=== PATIENT | female | born 1985 | race Caucasian/White ===

== ENCOUNTER 2020-02-06 10:10 | Day surgery (SDC) | payer BC, SELFPAY ==
[2020-01-24 07:55] VITALS: BMI 43.4
[2020-02-06 10:31] VITALS: BP 128/85; PULSE 105; RESP 16; TEMP 36.6; O2SAT 100; BMI 39.4
[2020-02-06 10:36] LABS: Internal QC Validated? YES +Cl - CLEAR BKGD; Pregnancy, Urine Negative Negative
[2020-02-06] MEDS: Lactated Ringers 1,000 ML 100 ML IV (10:49)
--- NOTE | 2020-02-06 11:30 | COLBX_PTH ---
PATIENT: JEAN PIERRE LAN LOC: EN U#:[id number] AGE/SX: 34/F ROOM: RE02/06/[address]: Dr. Main King MD : 1985 BED: DIS: 02/06/2020 SPEC #: [id number] RECD: 02/06/20 12:07 STATUS: SAMANTHA PAM #: [id number] KYLIE: 02/06/20 11:[address]: Main King DEPT: SURGICAL PATHOLOGY RECD BY: Patrick Castaneda ENTERED: 02/06/20 12:35 SP TYPE: COLON BX OTHR DR: Dr. John Ames DO Tissues: Sigmoid colon biopsy Procedures: Surgery Specimen Level IV HEADER OPERATION: Colonoscopy (MAC) PRE-OP DIAGNOSIS: Family history of colon cancer TISSUE SUBMITTED: Sigmoid colon polyp biopsy MICROSCOPIC DIAGNOSIS Sigmoid colon polyp, biopsy: Tubular adenoma. SJ:makayla 02/07/20 MICROSCOPIC DESCRIPTION Slides are reviewed. GROSS DESCRIPTION Received in fixative is one container labeled with the patient's name and designated sigmoid colon polyp biopsy. The specimen consists of one irregular fragment of light farfan soft tissue that measures 0.5 x 0.4 x 0.1 cm. The specimen is totally submitted in one cassette. / SJ:makayla 02/06/20 TC:1 CPT: 92485
--- NOTE | 2020-02-06 11:31 | HP.PCM_ITS ---
History and Physical Date of Admission: 02/06/20 [facility] [address] [place], [place] [address] OFFICE VISIT Date of Service: 01/24/20 MR#: [id number] Acct: [id number] Name: JEAN PIERRE LAN Rep #: [id number] : 1985 Provider: Main rogers MD Age/Sex: 34/F Location: [facility] Status: Signed Intake Vital Signs 01/24/20 BMI 43.4 01/24/20 Height 5 ft 5 in 01/24/20 Weight: 235 lb 01/24/20 BMI 39.1 01/24/20 BP 133/86 H 01/24/20 Blood Pressure Location Rt brachial 01/24/20 Position Sitting 01/24/20 Respiration 18 01/24/20 Pulse 105 H 01/24/20 Pulse Source Monitor 01/24/20 Temp 98.3 F 01/24/20 Temp Source Oral 01/24/20 Pulse Oximetry (%) 99 01/24/20 Oxygen Delivery Method room air Intake Visit Reasons: Self Referral/Cscope Consult/Family hx of Colon CA Chief Complaint: c-scope consult Logging Worker Required: No Accompanied by: Father Is patient in pain?: No Allergies No Known Allergies Allergy (Verified 01/24/20 07:52) Medications bupropion HCl 300 mg 24 hr tablet, extended release 300 mg PO QAM 01/24/20 [History Confirmed 01/24/20] PFSH Medical History Anxiety (Acute) Family history of colon cancer (Acute) Surgical History history suction dilatation and curretage (Acute) Family History Grandfather Colon cancer Mother Cancer mucosal melanoma Thyroid disorder Father Hypertension Social History (Updated 01/24/20 @ 07:[address] Main King MD) Smoking Status: Former smoker alcohol intake: never substance use type: does not use HPI HPI HPI: JEAN PIERRE LAN, is a 34 F who presents to the office today for HPI HPI HPI: JEAN PIERRE LAN, is a 34 F who presents to the office today for Evaluation for colonoscopy. Several years ago I diagnosed her mother with melanoma of the colon. She has subsequently passed. She also has a grandfather who had colon cancer. She has had no rectal bleeding she has had no change in her bowel habits. She is not complaining of any abdominal pain. ROS General General: No weight change, appetite, fatigue, colon cancer, breast cancer or weakness HEENT HEENT: No difficulty swallowing, eye injury, eye surgery, swollen glands or hoarseness Endo Endocrine: No thyroid disease, diabetes mellitus, thyroid cancer, Hair loss, heat intolerance or cold intolerance Skin Skin: No rash or changing moles Breast Breast: No left breast lump, right breast lump, nipple discharge, breast pain, abnormal mammogram, abnormal US or breast enlargement Musc Musculoskeletal: No back problems, arthritis, rheumatoid arthritis, gout or joint pain Cardio Cardiovascular: No murmur, pacemaker, heart disease, atrial fibrillation, high blood pressure, heart attack, heart stent, palpitations, shortness of breat with exertion or chest pain Psych Psychiatric: Yes anxiety; no depression or hearing voices Resp Respiratory: No shortness of breath, No sleep apnea, No cough, No COPD, No asthma, No emphysema, No wheezing Gastro Gastrointestinal: No abdominal pain, No nausea or vomiting, No diarrhea, No constipation, No blood in stool, No acid reflux, No hemorrhoids, No ulcers, No gallbladder problem, No black,tarry stools Arpit Hematologic: No blood thinners, No blood disorders, No bleeding, No anemia, No blood clots Neuro Neurologic: No system reviewed and no additional complaints, except as docu, No as per HPI, No abnormal walking, No abnormal hearing, No abnormal movements, No abnormal speech, No behavioral changes, No burning sensations, No confusion, No seizure-like activity, No unsteadiness, No dizziness, No localized weakness, No frequent falls, No headache(s), No lack of coordination, No loss of vision, No memory loss, No numbness, No other visual disturbances, No radiating pain, No restless legs, No sensory deficit, No fainting, No tingling, No tremor(s), No weakness, No other Exam Const General: no acute distress, well developed, well hydrated Orientation: oriented to person, oriented to place, oriented to time [facility] Head: normocephalic, atraumatic Ears: external ears normal Mouth: moist mucous membranes Eyes Sclera: sclerae normal Pupils: normal by confrontation Neck Neck: no lymphadenopathy noted Neck mass: No Thyroid: thyroid normal, symmetrical Chest Chest palpation & inspection: normal inspection of the chest Breast Palpation: No nipple discharge Resp Effort & Inspection: normal respiratory effort Auscultation: clear to auscultation bilaterally Percussion: percussion normal Cardio Rate: regular rate Rhythm: regular rhythm Heart Sounds: no murmurs GI Palpation: soft, no hepatosplenomegaly, no masses, nontender Rectal Exam: other Other: Rectal exam deferred. Extrem General: normal to inspection, no clubbing, cyanosis or edema Assessment & Plan Problems 1. Family history of colon cancer in mother Z80.0 Plan I have discussed the above with the patient. I have offered the patient colonoscopy for evaluation. I have explained the risks/benefits of the procedure and described the procedure. I have discussed the risks with the patient, including but not limited to: infection, bleeding, perforation of the GI tract requiring emergency surgery, inability to complete the procedure, injury to any internal organs, complications of anesthesia, etc. - the patient understands and agrees to proceed. I have answered all the patient's questions to the patient's satisfaction and the patient has no further questions. The patient has been given instructions for the colon cleansing preparation. Coding Level of Care Code Off vis,new,level 3 Diagnoses Family history of colon cancer in mother Z80.0 01/24/20 0756 <Electronically signed by Main walden MD> Date _ Main King MD Cosigner Signature: Date (if applicable) CC: John Castro DO ~ I have re-examined the patient. There are no clinical changes since date of exam.
--- NOTE | 2020-02-06 11:54 | OP.COLON_ITS ---
Patient Name: Sharron Carrasco Procedure Date: 02/06/2020 11:19 AM Date of : 1985 Age: 34 Procedure: Colonoscopy Indications: Screening in patient at increased risk: Colorectal cancer in mother 60 or older Providers: Main King MD Referring MD: John Ames Medicines: See the Anesthesia note for documentation of the administered medications Patient Profile: This is a 34 year old female. Refer to note in patient chart for documentation of history and physical. Last Colonoscopy: none. The patient's first colonoscopy is today. Complications: No immediate complications. Procedure: Pre-Anesthesia Assessment: - Prior to the procedure, a History and Physical was performed, and patient medications and allergies were reviewed. The patient's tolerance of previous anesthesia was also reviewed. The risks and benefits of the procedure and the sedation options and risks were discussed with the patient. All questions were answered, and informed consent was obtained. Prior Anticoagulants: The patient has taken no previous anticoagulant or antiplatelet agents. ASA Grade Assessment: II - A patient with mild systemic disease. After reviewing the risks and benefits, the patient was deemed in satisfactory condition to undergo the procedure. After I obtained informed consent, the scope was passed under direct vision. Throughout the procedure, the patient's blood pressure, pulse, and oxygen saturations were monitored continuously. The adult colonoscope was introduced through the anus and advanced to the cecum, identified by appendiceal orifice and ileocecal valve. The colonoscopy was performed without difficulty. The patient tolerated the procedure well. The quality of the bowel preparation was good. Scope In: 11:37:08 AM Scope Withdrawal Time 0 hours 6 minutes 59 seconds Scope Out: 11:51:15 AM Total Procedure Duration Time 0 hours 14 minutes 7 seconds Findings: A 5 mm polyp was found in the sigmoid colon. The polyp was sessile. The polyp was removed with a jumbo cold forceps. Resection and retrieval were complete. Non-bleeding internal hemorrhoids were found during retroflexion. The hemorrhoids were mild and small. The exam was otherwise without abnormality. Impression: - One 5 mm polyp in the sigmoid colon, removed with a jumbo cold forceps. Resected and retrieved. - Non-bleeding internal hemorrhoids. - The examination was otherwise normal. Recommendation: - Discharge patient to home. - Resume previous diet. - Continue present medications. - Await pathology results. - Repeat colonoscopy in 5 years for surveillance. - Return to my office in 1 week. Procedure Code(s): --- Professional --- 94714, Colonoscopy, flexible; with biopsy, single or multiple Diagnosis Code(s): --- Professional --- Z80.0, Family history of malignant neoplasm of digestive organs D12.5, Benign neoplasm of sigmoid colon K64.8, Other hemorrhoids CPT copyright 2017 [employer]. All rights reserved. The codes documented in this report are preliminary and upon spinning mule tender review may be revised to meet current compliance requirements. MD Main Tran MD 02/06/2020 11:54:35 AM This report has been signed electronically. Number of Addenda: 0 Note Initiated On: 02/06/2020 11:19 AM
--- NOTE | 2020-02-06 11:55 | OP.CCLET_ITS ---
02/06/2020 John Ames [address] [phone] Re : Colonoscopy procedure for Sharron Carrasco Dear Dr. Ames This procedure was performed on January. My impressions and recommendations are as follows: Impressions : - One 5 mm polyp in the sigmoid colon, removed with a jumbo cold forceps. Resected and retrieved. - Non-bleeding internal hemorrhoids. - The examination was otherwise normal. Recommendations : - Discharge patient to home. - Resume previous diet. - Continue present medications. - Await pathology results. - Repeat colonoscopy in 5 years for surveillance. - Return to my office in 1 week. My findings are described in the full procedure note, which is enclosed. If I can be of further assistance, please feel free to contact me at Doctor phone number(s): , Fax: [phone], Work: . Sincerely, MD Main Tran MD 02/06/2020 11:54:35 AM This report has been signed electronically.
[2020-02-06 12:00] VITALS: BP 124/78; BP 128/85; BP 97/82; PULSE 95; PULSE 97; RESP 14; RESP 16; TEMP 36.9; O2SAT 100; O2SAT 99
[2020-02-06 12:06] VITALS: BP 128/85
[2020-02-06 12:10] VITALS: BP 128/85; BP 142/95; PULSE 95; RESP 16; O2SAT 100
[2020-02-06 12:17] VITALS: BP 128/85; BP 137/93; PULSE 91; RESP 16; TEMP 36.4; O2SAT 100
[2020-02-06 13:20] VITALS: BP 128/85
== END 2020-02-06 13:37 | disposition home or self-care (01) ==
LOC: EN 10:10 → AC 10:13
PROVIDERS: Anesthesiology; PCP Student in an Organized Health Care Education/Training Program; Referring Provider Student in an Organized Health Care Education/Training Program; Visit Provider Surgery
PROC: 0DJD8ZZ Inspection of Lower Intestinal Tract, Via Natural or Artificial Opening Endoscopic (ICD-10-PCS; CPT 45378; principal; 2020-02-06 11:25)
DX: Z12.11 Encounter for screening for malignant neoplasm of colon (principal); Z80.0 Family history of malignant neoplasm of digestive organs; K64.8 Other hemorrhoids; D12.5 Benign neoplasm of sigmoid colon; Z87.891 Personal history of nicotine dependence; Z79.899 Other long term (current) drug therapy; F41.9 Anxiety disorder, unspecified
CPT/HCPCS: 45380; 81025; 88305; J7120; J1610; J2405

== ENCOUNTER 2023-10-13 10:04 | Day surgery (SDC) | payer OTHER, SELFPAY ==
--- NOTE | 2023-10-04 08:23 | HP.PCM.OB_ITS ---
History and Physical Date of Admission: 10/13/23 Expand All Collapse All Pre-Op History and Physical ? HPI: The patient is a 38 year old female presenting for pre-operative visit. She is scheduled for laparoscopic bilateral salpingectomy, for desires permanent sterilization on 10/13/23. Procedure discussed along with risks, benefits and complications. Other alternatives discussed for management. Consent form signed? Yes. ? ? PAST MEDICAL HISTORY PAST MEDICAL HISTORY Diagnosis Date ? History of ovarian cyst ? ? Mild preeclampsia 10/26/2015 ? SAB (spontaneous ) 12/10, 03/10 ? x 2 ? ? PAST SURGICAL HISTORY PAST SURGICAL HISTORY Procedure Laterality Date ? ADENOIDECTOMY PRIMARY <AGE 10 ? ? ? Adenoidectomy ? COLONOSCOPY BX SINGLE/MULTI ? 02/06/2020 ? Dr. King, [facility]; 1 5mm polyp in Sigmoid colon removed. Repeat in 5yrs ? D&C (MISSED AB 1ST TRIMESTER) ? 02/2014 ? x2 ? GASTRIC BYPASS HX ? 01/04/2022 ? TONSILLECTOMY PRIMARY/SECONDARY <AGE 10 ? ? ? Tonsillectomy ? ? ? CURRENT MEDICATIONS Current Outpatient Medications Medication Sig Dispense Refill ? hydrOXYchloroQUINE (PLAQUENIL) 200 mg tablet Take 1.5 tablets by mouth once daily. 45 tablet 2 ? buPROPion HCL 200 mg 12 hr tablet Take 1 tablet by mouth twice daily. 180 tablet 3 ? levonorgestrel (MIRENA) 20 mcg/24 hours (7 yrs) 52 mg IUD 1 Each by INTRAUTERINE route one time only. ? ? ? No current facility-administered medications for this visit. ? ? ALLERGIES: Nsaids (Non-Steroidal Anti-Inflammatory Drug) ? PERSONAL HISTORY: SOCIAL HISTORY Social History ? Tobacco Use ? Smoking status: Former ? Smokeless tobacco: Never Vaping Use ? Vaping Use: Never used Substance Use Topics ? Alcohol use: No ? Drug use: No ? FAMILY HISTORY: FAMILY HISTORY FAMILY HISTORY Problem Relation Age of Onset ? other (mucosal melinoma) Mother ? ? other (melanoma of rectum) Mother ? ? Hypertension Father ? ? other (Multiple myelomia) Maternal Grandmother ? ? Colon Cancer Maternal Grandfather ? ? Diabetes Maternal Grandfather ? ? Cancer Paternal Grandfather ? ? ? REVIEW OF SYMPTOMS: negative except as noted above PHYSICAL EXAMINATION: ? VITALS: Blood pressure 110/60, pulse 106, weight 173 lb (78.5 kg), last menstrual period 06/03/2022, SpO2 96 %. ? GENERAL: The patient is well nourished, well hydrated in no acute distress. , The patient is oriented to time, place, and person. NECK: Supple. Full range of motion LUNGS: HEART: Regular rate and rhythm, Normal heart sounds, and No murmurs or gallops ? ? IMPRESSION: 38yo desires permanent sterilization ? PLAN: laparoscopic bilateral salpingectomy ? Pt has been counseled on risks/benefits and alternatives of surgery including but not limited to anesthesia, bleeding, infection, injury to pelvic structures including bowel, bladder, ureters and vessels. Pt wishes to proceed with surgery at this time. Permanency reviewed- pt verbalized understanding. Wants to keep IUD for menstrual regulation. ? I have reviewed and updated past medical and surgical history, medications and allergies Alaina Tapia MD
[2023-10-13 10:39] VITALS: BP 110/71; PULSE 83; RESP 16; TEMP 36.7; O2SAT 100; BMI 29.1
[2023-10-13 10:46] LABS: Internal QC Validated? YES +Cl - CLEAR BKGD; Pregnancy, Urine Negative Negative; Record Kit Lot#,Urine Preg 667200
[2023-10-13] MEDS: Lactated Ringers 1,000 ML 15 ML IV (10:46)
[2023-10-13 10:49] LABS: Hematocrit 41.8 % (37-47); Hemoglobin 13.9 g/dL (12.0-15.0); Mean Corp Hgb Conc 33.3 g/dL (32-36); Mean Corpuscular Hgb 30.3 pg (27.0-32.0); Mean Corpuscular Volume 91.1 fL (81-99); Mean Platelet Vol. 10.8 fl (6.2-12.0); Platelet Count 208 K/mm3 (150-450); RBC Distribution Width SD 39.9 fl (35.1-43.9); Red Blood Count 4.59 M/mm3 (4.2-5.4); White Blood Count 6.9 K/mm3 (4.4-11.0)
--- NOTE | 2023-10-13 11:50 | FALS_PTH ---
PATIENT: JEAN PIERRE LAN LOC: [facility] U#:[id number] AGE/SX: 38/F ROOM: RE10/13/[address]: Dr. Alaina Irene, MDDOB: 1985 BED: DIS: 10/13/2023 SPEC #: [id number] RECD: 10/16/23 07:47 STATUS: SAMANTHA PAM #: [id number] KYLIE: 10/13/23 11:[address]: Alaina Irene DEPT: SURGICAL PATHOLOGY RECD BY: Kennedi Keating ENTERED: 10/16/23 07:48 SP TYPE: FALL TUBES OTHR DR: Cherie Lora, RADHA Tissues: Fallopian tube Procedures: Surgery Specimen Level II Surgery Specimen Level IV HEADER OPERATION: Laparoscopic salpingectomy PRE-OP DIAGNOSIS: Sterilization TISSUE SUBMITTED: Bilateral fallopian tubes MICROSCOPIC DIAGNOSIS Right and left fallopian tubes, bilateral salpingectomies: Complete cross-sections of fallopian tubes. One fallopian tube with changes of endometriosis. AM:makayla 10/17/2023 MICROSCOPIC DESCRIPTION Slides are reviewed. GROSS DESCRIPTION Received in fixative is one container labeled with the patient's name and designated bilateral fallopian tubes. The specimen consists of two fallopian tubes with an average length of 5.0 cm and has an average diameter of 0.6 cm. Both fallopian tubes have normal fimbriated ends. No mass lesions are identified. Bowling Ball Patcher sections are submitted in two cassettes as follows: 1 - one fallopian tube, 2??the other fallopian tube. / AM:makayla 10/16/2023 TC:5 CPT: 28160, 80858
--- NOTE | 2023-10-13 12:05 | DCINST_ITS ---
Discharge Instructions Diet Discharge Diet: No restrictions Activity May resume sexual activity in: 2 weeks Lifting Restrictions: 20-25 lbs Dressing / Incision Call your doctor if your incision/area has: Continuous Slow Oozing, Sudden Increased Bleeding, Increased Pain/ Swelling, Increased Redness, Foul Smelling Discharge and Swelling at the incision site Call your doctor if you observe: Fever of 101 or Higher, Inability to urinate, Inability to have a bowel movement, Using more than 1 pad per hour and Uncontrolled pain Additional Dressing/Incision Instructions:: You have skin glue over your incision sites, do not pick off. You may shower and let the soap and water run over the incision sites and dab dry. Follow Up Care Please Follow Up With: Alaina Irene MD When: 1-2 weeks post OP if you need an appointment please call [phone] Test Results: Test results from this visit will be discussed in further detail at your follow- up appointment, if applicable. Discharge Plan Admission Attending Provider: Alaina Irene Primary Care Provider: Cherie Lora NP Discharge Orders/Prescriptions Prescriptions: No Action bupropion HCl [Wellbutrin XL] 300 mg tablet extended release 24 hr 300 mg PO QAM drospirenone-ethinyl estradiol 1 EACH tablet 1 ea PO DAILY hydroxychloroquine [Plaquenil] 200 mg tablet 300 mg PO DAILY Referrals / Follow Up: Cherie Lora NP, [employer] [Primary Care Provider] - Disposition Disposition (needs filled in before D/C Order can be placed): Home, Self Care
--- NOTE | 2023-10-13 12:06 | PCM.OPRPT ---
Report of Operation Date of Procedure: 10/13/23 Pre-Operative Diagnosis: desires sterilization Post-Operative Diagnosis: Same, Endometriosis Surgery/Procedure Performed:: Laparoscopic Bilateral Salpingectomy Description of Surgical Findings:: endometriosis Implant on Anterior abdominal wall, Both tubes adhered to posterior aspect of uterus Surgeon: Alaina Irene veterinary hospital attendant: None Type of Anesthesia: General and Local Special Medications: 0.5% marcaine Specimen's removed: Bilateral fallopian tubes Drains: non Estimated Blood Loss (mL): 5cc Fluids Replaced: 800 Description of Procedure: After informed consent was obtained patient was taken to the operating room she was placed in supine position she was given anesthesia. She was then placed in the [facility] stirrups and she was prepped and draped in normal sterile fashion. Bladder was drained prior to the start of procedure. At this time attention was turned to the vaginal portion where weighted speculum placed at posterior fornix vagina single-tooth tenaculum was used to gently grasp the internal the cervix. uterus was gently sounded to approximately cm. Uterine manipulator was placed without difficulty. Legs then placed in parallel with the abdomen the tenaculum and the weighted speculum were removed. 2 towel clamps were placed at level of umbilicus. Marcaine was injected infraumbilical and a small incision was made. The 5 mm trocar was placed under direct visualization. CO2 gas was used to insufflate the intra-abdominal cavity. Upon inspection no gross abnormalities appreciated- the uterus tubes and ovaries appeared to be normal. At this time then the LLQ and RLQ ports were placed First Marcaine was injected and small incision was made a knife and the 5 mm trocars were placed. At this time then tubes were traced back to the fimbriated ends. ENSEAL was used to coagulate and ligate along mesosalpinx bilaterally until tubes removed completely. Good hemostasis was appreciated. At this time procedure was deemed complete successful. The gas was desufflated on from the intra-abdominal cavity. The trochars were removed. Skin was closed using 4-0 Monocryl in a subcutaneous fashion. Dermabond glue was placed. Instrument lap and needle counts were correct ?2. The uterine manipulator was removed. Vaginal sweep was performed it was negative. There were no complications anticipated normal postoperative course for this patient. Grafts/Implants Used: none Procedure Start Time: 12:25 Procedure Stop Time: 12:52 Complications none Admit VTE Documentation VTE Present on Admission: Yes VTE Mechan Device Prophylaxis: SCD's VTE Pharm Prophylaxis ordered?: No Reason prophylaxis not ordered:: Procedure Not Indicated
[2023-10-13] MEDS: Bupivacaine 0.5% PF 10 ML VIAL (12:25)
[2023-10-13 13:07] VITALS: BP 110/71; BP 124/69; PULSE 81; RESP 16; TEMP 36.8; O2SAT 100
[2023-10-13 13:15] VITALS: BP 110/71; BP 125/67; PULSE 86; RESP 16; O2SAT 100
[2023-10-13 13:30] VITALS: BP 110/71; BP 126/65; PULSE 81; RESP 16; O2SAT 100
[2023-10-13 13:45] VITALS: BP 110/71; BP 124/65; PULSE 92; RESP 16; TEMP 36.9; O2SAT 100
[2023-10-13 14:30] VITALS: BP 110/71
== END 2023-10-13 14:36 | disposition home or self-care (01) ==
LOC: SDC 10:06 → AC 10:07
PROVIDERS: Anesthesiology; PCP Registered Nurse; Referring Provider Obstetrics & Gynecology; Visit Provider Obstetrics & Gynecology
PROC: (CPT 58661; principal; 2023-10-13 11:35)
DX: Z30.2 Encounter for sterilization (principal); N80.209 Endometriosis of unspecified fallopian tube, unspecified depth; F41.9 Anxiety disorder, unspecified; Z79.899 Other long term (current) drug therapy; Z87.891 Personal history of nicotine dependence
CPT/HCPCS: 58661; 00840; 81025; 85027; 88302; 88305; J7120; C1760; J2405